=== PATIENT | male | born 2000 | race African-American/Black ===

== ENCOUNTER 2022-08-06 18:19 | Emergency (ER) | payer BC ==
[~2022-08-06] VITALS: Ht 165.1 cm; Wt 81.0 kg
[2022-08-06 18:34] VITALS: BP 113/53
== END 2022-08-07 02:27 | disposition left against medical advice (07) ==
LOC: ER 18:19
DX: Z53.21 Procedure and treatment not carried out due to patient leaving prior to being seen by health care provider (principal)